=== PATIENT | female | born 1970 | race African-American/Black ===

== ENCOUNTER 2018-07-29 15:31 | Outpatient (CLI) | payer BC | END 2018-07-29 15:32 | disposition home or self-care (01) | LOC: DTY/OP 15:31 | PROVIDERS: ATTEND Specialist | DX: Z01.818 Encounter for other preprocedural examination (principal); E66.01 Morbid (severe) obesity due to excess calories | CPT/HCPCS: 97802 ==

== ENCOUNTER 2018-09-03 13:00 | Inpatient (IN) | payer BC ==
[2018-09-05 11:38] VITALS: BMI 50.7
--- NOTE | 2018-09-05 12:20 | HP ---
HISTORY OF PRESENT ILLNESS: Jennifer Hauser is a 48-year-old female, initially seen on 06/27/2018. She is on Eliquis for history of pulmonary embolus. She will hold that for 2-1/2 days prior to her operation and resume it about 2 days afterwards. She will receive Lovenox preoperatively. She has visited the psychologist and seen Kami, our dietitian and has dietary instructions for perioperative advancement dietary changes relative for a laparoscopic sleeve gastrectomy. She understands the risks and benefits and consents the procedure. She is endorsed by the psychologist as a good candidate. She initially saw Dr. Canada in 2013, then weighing 318 pounds, attended our bariatric seminar in 2013, now has revisited our bariatric seminar and gone through our protocol. She is followed by Dr. Vaz in [facility] for a history of pulmonary embolus in 2016 and 2010. She reports a normal cardiac catheterization 5 years ago at [facility]. Colonoscopy last year was normal. EGD in [place] in 2018, was normal. She denies any reflux symptoms. She is followed by Dr. Davis with a baseline creatinine of 2. 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 She has comorbidities of obesity, CKD, past history of pulmonary embolus, diabetes mellitus, hypertension, and elevated cholesterol. She understands the risks and benefits of the procedure, and questions were answered. We will proceed with laparoscopic sleeve gastrectomy next week. LABORATORY DATA: Laboratories on 07/31/2018, reveal normal H. pylori. Low vitamin D at 20. Vitamin B1 normal at 126. White count 9, hemoglobin 10. BUN 71, creatinine 3. Liver function tests, normal. Cholesterol 248, triglyceride 192. We will repeat her CBC and basic metabolic panel on the morning of her surgery preoperatively. MEDICATIONS: Include: 1. Metoprolol 50 mg twice a day. 2. Gabapentin 300 mg 3 times a day. 3. Aspirin 81 mg a day. 4. Atorvastatin 40 mg a day. 5. Humulin R insulin 18 units a.m. and 15 units p.m. 6. Eliquis 5 mg twice a day. 7. Magnesium oxide 400 mg once a day. 8. Allopurinol 100 mg a day. 9. Lisinopril 20 mg a day. 10. Torsemide 20 mg a day. The patient understands the risks and benefits and consents. PAST SURGICAL HISTORY: Includes , tubal ligation, uterine ablation, and wisdom tooth removal. SOCIAL HISTORY: She is in administration at [employer]. PHYSICAL EXAMINATION: VITAL SIGNS: 324 pounds, 5 feet 7 inches, 50 BMI, blood pressure 152/78, heart rate 101, temperature 97.2 degrees. HEAD, EARS, EYES, NOSE, AND THROAT: Unremarkable. LUNGS: Clear to auscultation. CARDIAC: Regular rhythm without murmur or gallop. ABDOMEN: Soft, nontender, obese. EXTREMITIES: Unremarkable. ASSESSMENT: Morbid obesity with comorbidities as listed, elevated cholesterol and triglyceride, diabetes mellitus, hypertension, and chronic kidney disease. PLAN: Laparoscopic sleeve gastrectomy. She understands the risks and benefits and consents. Job ID: [id number]
[2018-09-11] MEDS ORDERED: Scopolamine 1.5 mg/72 hour Patch ONE (10:49)
[2018-09-11] MEDS ORDERED: Ketorolac Tromethamine 30 MG/ML VIAL ONE (10:49)
[2018-09-11] MEDS ORDERED: Heparin 5,000 UNITS/ML VIAL ONE (10:49)
[2018-09-11] MEDS ORDERED: cefOXitin 2 GM VIAL ONE (10:49)
[2018-09-11] MEDS ORDERED: Sodium Chloride 0.9% 100 ML ONE (10:49)
[2018-09-11] MEDS ORDERED: Bupivacaine/Epinephrine 0.25% 30 ML VIAL ONE (11:20)
[2018-09-11] MEDS ORDERED: Insulin Regular 300 UNITS/3 ML VIAL ONE ×3 (11:22→12:50)
[2018-09-11] MEDS ORDERED: Ondansetron PF 4 MG/2 ML Vial IVP PRN (11:49)
[2018-09-11] MEDS ORDERED: diphenhydrAMINE 50 MG/ML VIAL IVP PRN (11:49)
[2018-09-11] MEDS ORDERED: Dextrose 5% in Water 1,000 ML IV PRN (11:49)
[2018-09-11] MEDS ORDERED: hydrALAZINE 20 MG/ML VIAL SLOW IVP PRN (11:49)
[2018-09-11] MEDS ORDERED: Dextrose 50% Abboject 50 ML SYRINGE SLOW IVP PRN (11:49)
[2018-09-11] MEDS ORDERED: Morphine 2 MG/ML SYRINGE SLOW IVP PRN (11:49)
[2018-09-11] MEDS ORDERED: traMADol HCl 50 MG TAB PO PRN ×2 (11:54)
[2018-09-11 12:22] LABS: Anion Gap 15 mmol/L (10-20); BUN (Urea Nitrogen) 73 mg/dL (7.0-18.7); Calc. Creatinine Clearance 56 mL/min (70-130); Calcium 9.9 mg/dL (7.8-10.44); Carbon Dioxide 21 mmol/L (22-29); Chloride 102 mmol/L (98-107); Estimated GFR-MDRD 22; Glucose 360 mg/dL (70-105); Potassium 4.8 mmol/L (3.5-5.1); Sodium 133 mmol/L (136-145)
[2018-09-11] MEDS ORDERED: Midazolam HCl 2 mg/2 ml Vial ONE (13:18)
[2018-09-11] MEDS ORDERED: Fentanyl 100 MCG/2 ML VIAL ONE ×2 (13:18→16:02)
[2018-09-11] MEDS ORDERED: Dexmedetomidine 200 MCG/2 ML VIAL ONE (13:45)
--- NOTE | 2018-09-11 14:02 | CON ---
DATE OF CONSULTATION: REASON FOR CONSULTATION: Stage 4 chronic kidney disease. HISTORY OF PRESENT ILLNESS: This is a very pleasant 48-year-old female, who has been admitted for gastric sleeve surgery. The patient has had multiple episodes of acute kidney injury. PAST MEDICAL HISTORY: Significant for pulmonary embolism, history of hypertension, history of CKD, and history of cardiac catheterization. She has a history of gout, hypertension, hyperlipidemia, obesity, , and wisdom tooth extraction. SOCIAL HISTORY: No alcohol or drug use. FAMILY HISTORY: Negative for ESRD. ALLERGIES: REVIEWED. HOME MEDICATIONS: List reviewed. REVIEW OF SYSTEMS: A 15-point review of system was performed, negative except as noted above. GENERAL: HEAD: NECK: No swelling or lumps. NOSE: No epistaxis or discharge. EYES: No diplopia or pain. RESPIRATORY: CARDIOVASCULAR: GASTROINTESTINAL: /SALESPERSON NEW CARS: MUSCULOSKELETAL: No joint pain. NEUROPSYCHIATIC SYSTEMS: No suicidal ideation. No ideation. SKIN: Denies any rash or ulcer. CONSTITUTIONAL: No fever or chills. PHYSICAL EXAMINATION: CONSTITUTIONAL: The patient is awake and alert. VITAL SIGNS: Pulse 75, breathing 16, and blood pressure 120/60. GENERAL APPEARANCE AND MENTAL STATUS: Fair. HEAD/NECK: Normocephalic. Atraumatic. EYES: EOMI. No deformity. EARS: Clear. No ulcers. NOSE: Intact. No lesions. MOUTH: Clear. No discharge. THROAT: Clear. No exudate. LUNGS: Clear. No crackles. CARDIAC: S1, S2. No rub. ABDOMEN: Benign. Bowel sounds positive. GENITALIA/RECTUM: Khoury absent. BACK/EXTREMITIES: Edema 0+. NEUROLOGICAL: Alert and motor intact. SKIN: LYMPHATICS: LABORATORY DATA: Labs reviewed. ASSESSMENT AND PLAN: Chronic kidney disease stage 4, stable. Hypertension, stable. Anemia, stable. Medication based on GFR appropriate. No indication for any renal replacement therapy. Job ID: [id number]
[2018-09-11] MEDS ORDERED: Lidocaine 1% PF 5 ML VIAL ONE (15:29)
[2018-09-11] MEDS ORDERED: Ondansetron PF 4 MG/2 ML Vial ONE (15:29)
[2018-09-11] MEDS ORDERED: ePHEDrine 50 MG/ML VIAL ONE (15:29)
[2018-09-11] MEDS ORDERED: PHENYLEPHRINE-NS 100 MCG/ML 10 ML SYRINGE ONE (15:29)
[2018-09-11] MEDS ORDERED: Rocuronium Bromide 10 MG/ML (10ML VIAL) ONE (15:29)
[2018-09-11] MEDS ORDERED: Glycopyrrolate 0.2 MG/ML 5 ML SYRINGE ONE (15:29)
[2018-09-11] MEDS ORDERED: PROPOFOL 200 MG/20 ML VIAL ONE (15:29)
[2018-09-11] MEDS ORDERED: Promethazine HCl 25 MG/ML VIAL ONE (15:45)
[2018-09-11] MEDS ORDERED: Ondansetron HCl/PF 4 MG/2 ML Vial IVP PRN (15:57)
[2018-09-11] MEDS ORDERED: Promethazine HCl 25 MG/ML VIAL SLOW IVP PRN (15:57)
[2018-09-11] MEDS ORDERED: Promethazine HCl 25 MG/ML VIAL IM PRN (15:57)
[2018-09-11] MEDS: Morphine 4 MG/ML VIAL SLOW IVP PRN ×2 (17:38→23:15)
[2018-09-11] MEDS: Sodium Chloride 0.9% 1,000 ML IV SCH ×2 (17:40→20:05)
[2018-09-11] MEDS: Insulin Regular 300 UNITS/3 ML VIAL SC SCH (18:54)
[2018-09-11] MEDS: Gabapentin 300 MG CAP PO SCH (20:04)
[2018-09-11] MEDS ORDERED: Enoxaparin Sodium 30 MG/0.3 ML SYRINGE SC SCH (21:00)
--- NOTE | 2018-09-11 21:43 | OP ---
DATE OF PROCEDURE: 09/11/2018 PREOPERATIVE DIAGNOSES: Morbid obesity, 324 pounds, 50 BMI, metabolic syndrome, diabetes mellitus, insulin dependent, hypertension, elevated cholesterol, chronic kidney disease, history of pulmonary embolism, on chronic anticoagulation. PROCEDURES PERFORMED: Laparoscopic sleeve gastrectomy, 36-Lao bougie, staple line within 4 cm of pylorus, completion upper endoscopy, visualizing the pylorus. No restrictions. No bleeding. ESTIMATED BLOOD LOSS: Less than 25 mL BLOOD TRANSFUSION: None. DESCRIPTION OF PROCEDURE: The patient was taken to the operating room where under general anesthesia, abdomen was prepared with ChloraPrep and draped in routine fashion. Local anesthetic was infiltrated in the skin and subcutaneous tissue about all port sites. A total volume 60 mL of 0.25% Marcaine with epinephrine used. Upper midline abdominal incision was made. Pneumoperitoneum to 15 mmHg was obtained with a Veress needle, replacing with a 5 port, video laparoscope inserted. Bilateral far lateral subcostal incision made and 5 ports placed. Bilateral midclavicular upper abdominal incision was made and a 15 port was placed on the left, 12 port was placed on the right. Subxiphoid incision was made and Junaid liver retractor was inserted under laparoscopic visualization, reflecting non-fatty liver anterior and cephalad. Laparoscopic sleeve gastrectomy preparation began by taking down the gastrocolic ligament using the LigaSure in the distal stomach, dissecting this free, taking down the attachments up to the angle of His, dissecting this free, then taking down distal attachments using the LigaSure to within 4 cm of the pylorus. A 36-Lao bougie was placed under laparoscopic visualization, positioned along the lesser curvature of stomach down through the pylorus and serial fires of TOSHA Endo stapler were used to complete the sleeve gastrectomy, initially using the green load, then gold load, then subsequent blue loads to complete the sleeve gastrectomy, taking care to not narrow the sleeve gastrectomy along the incisor and stayed clear of the angle of His. After this was completed, the stomach was removed and suture placed in the 15 mm port site in left upper abdomen. Upper endoscopy then performed placing the scope per os under direct visualization, visualizing the esophagus, stomach and pylorus, withdrawn the scope noting normal staple line without bleeding and no restrictions. No evidence of leak. Stomach decompressed. Scope removed. Abdominal cavity then irrigated, irrigant evacuated. Hemostasis obtained along the staple line using clips. Hemostasis noted. Pneumoperitoneum irrigant evacuated after the Junaid liver retractor removed under laparoscopic visualization. All skin incisions were approximated with subdermal 4-0 Monocryl and [place] glue applied. Job ID: [id number]
[2018-09-11] MEDS: HumaLOG 300 UNITS/3 ML VIAL SC PRN (21:51)
[2018-09-12] MEDS: Morphine 4 MG/ML VIAL SLOW IVP PRN (03:40)
[2018-09-12] MEDS: Sodium Chloride 0.9% 1,000 ML IV SCH ×3 (03:45→19:50)
[2018-09-12 04:44] LABS: #Eosinphils 0.1 thou/uL (0.0-0.7); #Lymphocytes 2.6 thou/uL (1.20-3.40); #Monocytes 0.9 thou/uL (0.11-0.59); %Basophils 0.3 % (0.0-1.0); %Eosinophils 0.5 % (0.0-10.0); %Lymphocytes 20.4 % (21.0-51.0); %Neutrophils 71.7 % (42.0-75.0); Hemoglobin 9.4 g/dL (12.0-16.0); Mean Corpuscular HGB CONC 33.2 g/dL (32.0-36.0); Mean Corpuscular Hemoglobin 31.4 pg (27.0-31.0); Mean Corpuscular Volume 94.6 fL (78.0-98.0); Platelet Count 223 thou/uL (130-400); Red Blood Cell (RBC) Count 3.01 mill/uL (4.20-5.40); White Blood Cell (WBC) Count 12.5 thou/uL (4.8-10.8)
[2018-09-12 05:02] LABS: Anion Gap 12 mmol/L (10-20); BUN (Urea Nitrogen) 67 mg/dL (7.0-18.7); Calc. Creatinine Clearance 59 mL/min (70-130); Calcium 9.7 mg/dL (7.8-10.44); Carbon Dioxide 24 mmol/L (22-29); Chloride 108 mmol/L (98-107); Estimated GFR-MDRD 23; Glucose 104 mg/dL (70-105); Sodium 139 mmol/L (136-145)
[2018-09-12] MEDS: Insulin Regular 300 UNITS/3 ML VIAL SC SCH ×2 (06:25→14:04)
[2018-09-12] MEDS ORDERED: Aspirin 81 mg Enteric Coated Tablet PO SCH (09:00)
[2018-09-12] MEDS: Pantoprazole 40 MG VIAL IVP SCH (09:23)
[2018-09-12] MEDS: Metoprolol Tartrate 100 MG TAB PO SCH (09:24)
[2018-09-12] MEDS: Gabapentin 300 MG CAP PO SCH (09:24)
[2018-09-12] MEDS: Amlodipine 5 MG TAB PO SCH ×2 (09:25→09:38)
[2018-09-12] MEDS: Torsemide 20 MG TAB PO SCH (09:25)
--- NOTE | 2018-09-12 11:54 | PRG ---
DATE OF SERVICE: 09/12/2018 SUBJECTIVE: A 48-year-old female, being seen for acute kidney injury. The patient denied nausea, vomiting, or chest pain. OBJECTIVE: CONSTITUTIONAL: The patient is awake and alert. VITAL SIGNS: Afebrile. Pulse 90, breathing 16, blood pressure 156/83. GENERAL APPEARANCE AND MENTAL STATUS: Fair. HEAD/NECK: Normocephalic. Atraumatic. EYES: EOMI. No deformity. EARS: Clear. No ulcers. NOSE: Intact. No lesions. MOUTH: Clear. No discharge. THROAT: Clear. No exudate. LUNGS: Clear. No crackles. CARDIAC: S1, S2. No rub. ABDOMEN: Benign. Bowel sounds positive. GENITALIA/RECTUM: Khoury absent. BACK/EXTREMITIES: Edema 0+. NEUROLOGICAL: Alert and motor intact. SKIN: LYMPHATICS: LABORATORY DATA: Reviewed. ASSESSMENT AND PLAN: 1. Chronic kidney injury, stage 4, stable. 2. Hypertension, stable. 3. Anemia, stable. 4. Medication based on GFR appropriate. No indication for dialysis. I would avoid Lovenox that is renally excreted. Job ID: [id number]
[2018-09-12] MEDS ORDERED: Hydrocodone-Acetamin 15 ML UDCUP PO PRN (12:00)
[2018-09-12] MEDS: Acetaminophen 1,000 MG in Premix Bag 1 BAG IVPB SCH ×3 (12:31→23:31)
[2018-09-12] MEDS: HumaLOG 300 UNITS/3 ML VIAL SC PRN ×3 (12:32→21:24)
--- NOTE | 2018-09-12 13:59 | PRG ---
DATE OF SERVICE: 09/12/2018 SUBJECTIVE: Ms. Hauser underwent the laparoscopic sleeve gastrectomy yesterday. She has had nausea postoperatively. She has a scopolamine patch on, but continues to have nausea. She has tolerated some liquids, but not well. OBJECTIVE: VITAL SIGNS: 98.5 and 156/83. LUNGS: Clear to auscultation. CARDIAC: Regular rate and rhythm without murmur or gallop. ABDOMEN: Soft, obese, and nontender. Surgical wound looks good. ASSESSMENT AND PLAN: 1. Postoperative nausea. Continue observation day. Continue IV fluids. Hemoglobin is stable at 9.4 down from 11 yesterday, 10.1 prior to that. Recheck tomorrow. 2. Chronic kidney disease, seen by Dr. Davis. GFR stable at 23, BUN 67, creatinine 3.66, and potassium 5. 3. Diabetes. Accu-Cheks on admission 400, now 240 to 250. Continue sliding scale coverage. She is on 75 units of insulin subcu t.i.d. Job ID: [id number]
[2018-09-12] MEDS: Metoclopramide 10 MG/10 ML UDCUP PO SCH ×2 (17:03→19:47)
[2018-09-12 17:12] LABS: #Basophils 0.1 thou/uL (0.0-0.2); #Eosinphils 0.1 thou/uL (0.0-0.7); #Lymphocytes 1.6 thou/uL (1.20-3.40); #Monocytes 0.6 thou/uL (0.11-0.59); %Basophils 0.6 % (0.0-1.0); %Eosinophils 0.9 % (0.0-10.0); %Lymphocytes 15.4 % (21.0-51.0); Hemoglobin 9.5 g/dL (12.0-16.0); Mean Corpuscular HGB CONC 32.4 g/dL (32.0-36.0); Mean Corpuscular Hemoglobin 31.1 pg (27.0-31.0); Mean Platelet Volume 9.5 fL (7.4-10.4); Platelet Count 232 thou/uL (130-400); Red Blood Cell (RBC) Count 3.07 mill/uL (4.20-5.40); White Blood Cell (WBC) Count 10.4 thou/uL (4.8-10.8)
[2018-09-12] MEDS ORDERED: Acetaminophen 500 MG TAB PO PRN (18:00)
[2018-09-13] MEDS: Sodium Chloride 0.9% 1,000 ML IV SCH ×3 (05:07→20:16)
[2018-09-13] MEDS: Acetaminophen 1,000 MG in Premix Bag 1 BAG IVPB SCH (05:08)
[2018-09-13] MEDS: HumaLOG 300 UNITS/3 ML VIAL SC PRN ×3 (06:26→17:00)
[2018-09-13] MEDS: Metoclopramide 10 MG/10 ML UDCUP PO SCH ×4 (06:26→20:16)
[2018-09-13 07:01] LABS: #Eosinphils 0.2 thou/uL (0.0-0.7); #Lymphocytes 1.6 thou/uL (1.20-3.40); #Monocytes 0.6 thou/uL (0.11-0.59); #Neutrophils 6.5 thou/uL (1.40-6.50); %Basophils 0.1 % (0.0-1.0); %Lymphocytes 18.1 % (21.0-51.0); %Monocytes 7.1 % (0.0-10.0); %Neutrophils 72.6 % (42.0-75.0); Hemoglobin 8.8 g/dL (12.0-16.0); Mean Corpuscular HGB CONC 32.8 g/dL (32.0-36.0); Mean Corpuscular Hemoglobin 31.7 pg (27.0-31.0); Mean Corpuscular Volume 96.6 fL (78.0-98.0); Mean Platelet Volume 9.6 fL (7.4-10.4); Platelet Count 197 thou/uL (130-400); RBC Distribution Width 12.8 % (11.5-14.5); Red Blood Cell (RBC) Count 2.77 mill/uL (4.20-5.40); White Blood Cell (WBC) Count 8.9 thou/uL (4.8-10.8)
[2018-09-13 07:30] LABS: Anion Gap 13 mmol/L (10-20); BUN (Urea Nitrogen) 47 mg/dL (7.0-18.7); Calc. Creatinine Clearance 72 mL/min (70-130); Calcium 9.1 mg/dL (7.8-10.44); Carbon Dioxide 20 mmol/L (22-29); Chloride 111 mmol/L (98-107); Estimated GFR-MDRD 29; Glucose 204 mg/dL (70-105); Potassium 4.8 mmol/L (3.5-5.1); Sodium 139 mmol/L (136-145)
[2018-09-13] MEDS: Pantoprazole 40 MG VIAL IVP SCH (10:00)
[2018-09-13] MEDS: Amlodipine 5 MG TAB PO SCH ×2 (10:01→10:28)
[2018-09-13] MEDS: Metoprolol Tartrate 100 MG TAB PO SCH ×2 (10:01→10:29)
[2018-09-13] MEDS: Torsemide 20 MG TAB PO SCH ×2 (10:02→10:28)
--- NOTE | 2018-09-13 12:20 | PRG ---
DATE OF SERVICE: 09/13/2018 SUBJECTIVE: A 48-year-old female being seen for acute kidney injury. The patient denied any nausea, vomiting, or chest pain. OBJECTIVE: CONSTITUTIONAL: On exam, the patient is awake and alert. VITAL SIGNS: Afebrile, pulse 96, breathing 16, and blood pressure 139/74. GENERAL APPEARANCE AND MENTAL STATUS: Fair. HEAD/NECK: Normocephalic. Atraumatic. EYES: EOMI. No deformity. EARS: Clear. No ulcers. NOSE: Intact. No lesions. MOUTH: Clear. No discharge. THROAT: Clear. No exudate. LUNGS: Clear. No crackles. CARDIAC: S1, S2. No rub. ABDOMEN: Benign. Bowel sounds positive. GENITALIA/RECTUM: Khoury absent. BACK/EXTREMITIES: Edema 0+. NEUROLOGICAL: Alert and motor intact. LABORATORY DATA: Reviewed. ASSESSMENT AND PLAN: 1. Chronic kidney disease, stage 4, stable. 2. Hypertension, stable. 3. Acute kidney injury due to acute tubular necrosis, improved. 4. Hyperkalemia, improved. Job ID: [id number]
[2018-09-13] MEDS: Insulin Regular 300 UNITS/3 ML VIAL SC SCH (18:32)
--- NOTE | 2018-09-14 00:21 | PRG ---
DATE OF SERVICE: 09/13/2018 Jennifer Hauser is feeling much better two days status post laparoscopic sleeve gastrectomy. She has chronic kidney disease and some mild uremia, which is probably contributed to her nausea postoperatively. She feels very good today. Today, I discussed with Dr. Davis, her diabetes medicine management. We did add Tradjenta 5 mg a day. She was taking at home 75 units of Humulin R insulin 3 times a day. We will decrease that to 40 units 3 times a day due to her liquid post sleeve gastrectomy diet and decrease eating volume. This morning, hemoglobin was 8.8, white count 8.9. Her basic metabolic profile is stable with BUN and creatinine slightly improved at 47 and 2.18, GFR 29. Glucoses in the low 200s and more recently 161. Her preoperative hemoglobin was 10. She will be seeing her primary care doctor at [facility] next week to review her diabetes management and alterations. Job ID: [id number]
[2018-09-14] MEDS: Sodium Chloride 0.9% 1,000 ML IV SCH ×2 (03:01→12:00)
[2018-09-14] MEDS: Insulin Regular 300 UNITS/3 ML VIAL SC SCH ×2 (06:19→12:00)
[2018-09-14] MEDS: Metoclopramide 10 MG/10 ML UDCUP PO SCH ×2 (06:19→11:57)
[2018-09-14 07:22] VITALS: TEMP 98.2
[2018-09-14] MEDS ORDERED: Allopurinol 100 MG TAB PO SCH (09:00)
[2018-09-14] MEDS: Torsemide 20 MG TAB PO SCH (09:18)
[2018-09-14] MEDS: Amlodipine 5 MG TAB PO SCH (09:18)
[2018-09-14] MEDS: Metoprolol Tartrate 100 MG TAB PO SCH (09:19)
[2018-09-14 11:34] VITALS: BP 129/72
[2018-09-14] MEDS: HumaLOG 300 UNITS/3 ML VIAL SC PRN (11:58)
--- NOTE | 2018-09-14 14:12 | PRG ---
DATE OF SERVICE: 09/14/2018 SUBJECTIVE: A 48-year-old female being seen for acute kidney injury. The patient denied any nausea, vomiting, or chest pain. OBJECTIVE: CONSTITUTIONAL: On exam, the patient is awake and alert. VITAL SIGNS: Afebrile, pulse 70, breathing 16, and blood pressure 125/72. GENERAL APPEARANCE AND MENTAL STATUS: Fair. HEAD/NECK: Normocephalic. Atraumatic. EYES: EOMI. No deformity. EARS: Clear. No ulcers. NOSE: Intact. No lesions. MOUTH: Clear. No discharge. THROAT: Clear. No exudate. LUNGS: Clear. No crackles. CARDIAC: S1, S2. No rub. ABDOMEN: Benign. Bowel sounds positive. GENITALIA/RECTUM: Khoury absent. BACK/EXTREMITIES: Edema 0+. NEUROLOGICAL: Alert and motor intact. LABORATORY DATA: Hemoglobin 8.8. Creatinine was 2.1. ASSESSMENT AND PLAN: 1. Acute kidney injury on chronic kidney disease, stable. 2. Hypertension, stable. 3. Anemia, stable. 4. Medications based on glomerular filtration rate are appropriate. Job ID: [id number]
[2018-09-14 14:29] LABS: Anion Gap 14 mmol/L (10-20); BUN (Urea Nitrogen) 29 mg/dL (7.0-18.7); Calc. Creatinine Clearance 86 mL/min (70-130); Calcium 9.6 mg/dL (7.8-10.44); Carbon Dioxide 21 mmol/L (22-29); Chloride 107 mmol/L (98-107); Estimated GFR-MDRD 36; Glucose 225 mg/dL (70-105); Potassium 4.7 mmol/L (3.5-5.1); Sodium 137 mmol/L (136-145)
--- NOTE | 2018-09-14 14:29 | PRG ---
DATE OF SERVICE: 09/14/2018 SUBJECTIVE: Jennifer Hauser is doing well. She is tolerating her diet. She has had very little pain. She believes that her pain will be controlled with Tylenol. Her glucose is under better control. She will restart Tradjenta 5 mg a day. Her glucose is now 80 to 160. She states her Accu-Cheks are very much variable and she has to adjust her insulin doses daily. She often takes as much as 75 units insulin 3 times a day subcu. She has an appointment to see her primary care doctor in the next 2 weeks. OBJECTIVE: LUNGS: Clear to auscultation. CARDIAC: Regular rate and rhythm without murmur or gallop. ABDOMEN: Soft, nontender. ASSESSMENT: She is doing well. PLAN: Discharge home today on Tradjenta and she will take Tylenol for pain. She does not take NSAIDs due to her chronic kidney disease. Dr. Davis saw her in this hospitalization and her CKD is stable. Follow up in my office in 2 to 3 weeks. Advance diet per bariatric protocol. Job ID: [id number]
[2018-09-15] MEDS ORDERED: Alogliptin 25 MG TAB PO SCH (09:00)
--- NOTE | 2018-09-16 13:05 | DIS ---
DATE OF ADMISSION: 09/11/2018 DATE OF DISCHARGE: 09/14/2018 DISCHARGE DIAGNOSIS: Morbid obesity, 5 foot and 7 inches, 324 pounds, 50 BMI. The patient went through her preoperative bariatric program. She saw a psychologist and felt to be a good candidate for bariatric surgery and underwent preoperative labs. She has a history of pulmonary embolus in 2017 and 2010 and is on chronic anticoagulation, Eliquis. She had a normal cardiac catheterization 5 years ago at [facility]. Colonoscopy last year was normal. EEG in [place] in 2018, was normal. She denies any reflux symptoms. She has chronic kidney disease followed by Dr. Davis with baseline creatinine of 2. 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 She has comorbidities of obesity, chronic kidney disease, diabetes, 75 units subcu insulin 3 times a day, not on any oral medications. Past history of pulmonary embolus, diabetes mellitus, hypertension, and elevated cholesterol. She is now admitted for laparoscopic sleeve gastrectomy. On admission, her hemoglobin A1c preoperatively was 10. Her glucoses were 400. Her surgery was delayed on the day of surgery and her glucoses were under 250. The patient underwent laparoscopic sleeve gastrectomy. Dr. Davis saw her this hospitalization and her renal function remained normal. She has chronic anemia from her CKD. The patient has an appointment with Dr. Johnson, her primary care physician at [facility]. This hospitalization, she was discharged. Accu-Cheks in the 70 to 164 range. She was started on Tradjenta 5 mg a day. She will adjust her subcu insulin dose daily per sliding scale at home. Her discharge BUN is 47, creatinine 2.18, slightly better than when admitted due to hydration. Her hemoglobin remained stable at 9.4 to 8.8. The patient will follow her bariatric protocol, be on liquids, advance to pureed after 2 weeks and then soft diet after 4 weeks. She will be physically active without physical activity restrictions and without lifting restriction. She can shower and bathe. DISCHARGE MEDICATIONS: Include Tylenol 1000 mg p.o. q.i.d. p.r.n. pain, allopurinol 100 mg daily, amlodipine 5 mg a day, p.r.n. Zofran, she will be on a PPI, Protonix daily or if she takes at home. She was given tramadol p.r.n., but she states she does not need this at home, gabapentin 600 mg b.i.d., aspirin 81 mg a day, and metoprolol 100 mg daily. Job ID: [id number]
== END 2018-09-14 15:50 | disposition home or self-care (01) | DRG 619 ==
LOC: SURG A 09-11 10:15 → SURG B 09-11 15:43
PROVIDERS: ADMIT Specialist; ATTEND Specialist
PROC: 0DB64Z3 Excision of Stomach, Percutaneous Endoscopic Approach, Vertical (ICD-10-PCS; principal; 2018-09-11)
DX: E66.01 Morbid (severe) obesity due to excess calories (principal); N17.0 Acute kidney failure with tubular necrosis; N18.4 Chronic kidney disease, stage 4 (severe); E11.22 Type 2 diabetes mellitus with diabetic chronic kidney disease; E78.00 Pure hypercholesterolemia, unspecified; I12.9 Hypertensive chronic kidney disease with stage 1 through stage 4 chronic kidney disease, or unspecified chronic kidney disease; M10.9 Gout, unspecified; E87.5 Hyperkalemia; D63.1 Anemia in chronic kidney disease; Z79.4 Long term (current) use of insulin; Z68.43 Body mass index [BMI] 50.0-59.9, adult; Z79.01 Long term (current) use of anticoagulants; Z86.711 Personal history of pulmonary embolism; Z98.51 Tubal ligation status; Z79.899 Other long term (current) drug therapy; Z79.82 Long term (current) use of aspirin
CPT/HCPCS: 36415; 36416; 80048; 85025; 86850; 86900; 86901; 88307; 88312; C9113; J0131; J0694; J1644; J1650; J1815; J1885; J2001; J2250; J2270; J2405; J2550; J2704; J3010; J3490; J8597

== ENCOUNTER 2018-09-05 00:11 | Outpatient (CLI) | payer BC ==
[2018-09-05 12:38] LABS: #Eosinphils 0.1 thou/uL (0.0-0.7); #Lymphocytes 2.4 thou/uL (1.20-3.40); #Monocytes 0.7 thou/uL (0.11-0.59); #Neutrophils 9.1 thou/uL (1.40-6.50); %Basophils 0.1 % (0.0-1.0); %Eosinophils 0.9 % (0.0-10.0); %Lymphocytes 19.3 % (21.0-51.0); %Monocytes 5.6 % (0.0-10.0); %Neutrophils 74.1 % (42.0-75.0); Mean Corpuscular Hemoglobin 31.8 pg (27.0-31.0); Mean Corpuscular Volume 93.5 fL (78.0-98.0); Mean Platelet Volume 9.1 fL (7.4-10.4); Platelet Count 323 thou/uL (130-400); RBC Distribution Width 13.1 % (11.5-14.5); Red Blood Cell (RBC) Count 3.47 mill/uL (4.20-5.40); White Blood Cell (WBC) Count 12.3 thou/uL (4.8-10.8)
[2018-09-05 12:50] LABS: Anion Gap 15 mmol/L (10-20); BUN (Urea Nitrogen) 90 mg/dL (7.0-18.7); Calc. Creatinine Clearance 0 mL/min (70-130); Calcium 10.2 mg/dL (7.8-10.44); Carbon Dioxide 20 mmol/L (22-29); Chloride 105 mmol/L (98-107); Estimated GFR-MDRD 23; Glucose 142 mg/dL (70-105); Potassium 4.5 mmol/L (3.5-5.1); Sodium 135 mmol/L (136-145)
== END 2018-09-05 00:12 | disposition home or self-care (01) ==
LOC: LABBT 00:11
PROVIDERS: ATTEND Specialist
DX: Z01.812 Encounter for preprocedural laboratory examination (principal); I10 Essential (primary) hypertension; E11.9 Type 2 diabetes mellitus without complications; E66.01 Morbid (severe) obesity due to excess calories; Z68.43 Body mass index [BMI] 50.0-59.9, adult
CPT/HCPCS: 80048; 85025